=== PATIENT | male | born 1950 | race Caucasian/White ===

== ENCOUNTER → 2016-08-16 | Outpatient (CLI) | payer BC ==
[2016-08-16 12:29] LABS: CHLORIDE,CL 102 mmol/L (98-110); SODIUM,NA 137 mmol/L (136-146)
== END ==
LOC: MW.CHFP 11:30
PROVIDERS: ATTEND Student in an Organized Health Care Education/Training Program
DX: I10 Essential (primary) hypertension (principal); E11.65 Type 2 diabetes mellitus with hyperglycemia; E78.00 Pure hypercholesterolemia, unspecified
CPT/HCPCS: 36415; 80053; 80061; 82044; 83036

== ENCOUNTER 2020-07-22 17:55 | Emergency (ER) | payer BC ==
[2020-07-22] MEDS ORDERED: Diphtheria,Pertussis(Acell),Tetanus Vaccine 0.5 ML Syringe IM ONE (19:33)
[2020-07-22] MEDS ORDERED: Cephalexin 250 MG Cap PO STA (19:33)
[2020-07-22] MEDS ORDERED: Ketorolac 15 MG/ML SDV IM ONE (19:33)
--- NOTE | 2020-07-22 19:38 | EDM.PDOC ---
ED HPI GENERAL MEDICAL PROBLEM - General Chief Complaint: Skin Complaint Stated Complaint: LT HAND HAS STAPLE IN IT Time Seen by Provider: 07/22/20 18:59 - History of Present Illness INITIAL COMMENTS - FREE TEXT/NARRATIVE: CHIEF COMPLAINT(S): Stable and hand HISTORY OF PRESENT ILLNESS: This is a 69-year-old man with a past medical history of hypertension and diabetes mellitus who comes to the emergency department with a chief complaint of staple in hand. The patient states that prior to arrival he was preparing for a garage sale. He states that he was going to sell a stapler and he used it to see if it worked. He accidentally stapled his left hand. He states that he is having some pain at the site but denies any decreased range of motion, numbness, tingling or excessive bleeding. He states that his tetanus is not up-to-date. He rates his pain as 4-5 out of 10 without any radiation. He states that he has not yet taken any pain medications. Keeping it still seems to help the pain and any movement seems to worsen the pain. He denies any other symptoms REVIEW OF SYSTEMS: Constitutional: Denies fever, chills. Skin: Positive for puncture wounds to left palm with stable and left palm MSK: Positive for left hand pain Neurological: Denies, numbness, tingling, weakness PAST MEDICAL HISTORY: As per history of present illness and as reviewed below otherwise noncontributory. SURGICAL HISTORY: As per history of present illness and as reviewed below otherwise noncontributory. SOCIAL HISTORY: As per history of present illness and as reviewed below otherwise noncontributory. FAMILY HISTORY: As per history of present illness and as reviewed below otherwise noncontributory. EXAMINATION OF ORGAN SYSTEMS/BODY AREAS: Constitutional: Blood pressure is 144/88, heart rate 81, respiratory rate 18 wit h an oxygen saturation 96% on room air. Temperature 36.4 General: Overall well-appearing man who is in no acute distress. Psychiatric: Appropriate mood and affect. Eyes: No scleral icterus or conjunctival erythema Cardiovascular: Regular, rate, and rhythm. No gallops, murmurs, or rubs. Bilateral upper extremity pulses symmetric and intact. Respiratory: Lungs clear to auscultation bilaterally. No wheezes, rales, or rhonchi. Musculoskeletal: The patient has full range of motion of all his digits on his left hand. No deformity noted. Skin: There is a staple in the center of the patient's left palm without any active bleeding. Neurological: Alert, GCS 15 strength and sensation grossly intact in upper and lower extremities bilaterally. MEDICAL DECISION MAKING AND COURSE IN THE ED WITH INTERPRETATION/REVIEW OF DIAGNOSTIC STUDIES: This is a 69-year-old male with a past medical history of diabetes mellitus and hypertension who comes to the emergency department with staple to left palm without any active bleeding who is neurovascularly intact. At this time given that the patient's tetanus is not up-to-date we will update the patient's tetanus. We will provide the patient with Toradol for pain relief. The patient is right-hand dominant however given the location of the staple we will start the patient on Keflex for prophylaxis. Foreign body removal Using pliers the staple was removed without any incident. No complications noted. Patient post removal remain neurovascularly intact. I did discuss with patient that he be stable for discharge. I discussed the issues Tylenol, Motrin, ice and elevation. He is to return for any new or worsening symptoms. He is to follow-up with his primary care physician DISPOSITION: The patient was discharged home in stable condition. The patient will follow up with primary care physician within 1 week CONDITION: Fair PROCEDURES: Left hand foreign body removal FINAL IMPRESSION(S)/DIAGNOSES: 1. Acute foreign body to left hand status post foreign body removal Brice Singh M.D. left palm Pain Score (Numeric/FACES): 10 - Related Data Allergies Allergy/AdvReac Type Severity Reaction Status Date / Time No Known Allergies Allergy Verified 07/22/20 19:11 Home Meds: Home Meds Aspirin 81 mg PO DAILY 07/22/20 [History] Lisinopril/Hydrochlorothiazide [Lisinopril-Hctz 10-12.5 mg Tab] 1 each PO DAILY 07/22/20 [History] Simvastatin 40 mg PO DAILY 07/22/20 [History] cephALEXin [Keflex] 250 mg PO BID #10 cap 07/22/20 [Rx] metFORMIN [Glucophage] 500 mg PO BIDMEALS 07/22/20 [History] Past Medical History HEENT History: Reports: None Cardiovascular History: Reports: High Cholesterol, Hypertension Respiratory History: Reports: None Gastrointestinal History: Reports: None Genitourinary History: Reports: None Musculoskeletal History: Reports: None Neurological History: Reports: None Psychiatric History: Reports: None Endocrine/Metabolic History: Reports: Diabetes, Type II Insulin Pump Model and Protection Agent: None Hematologic History: Reports: None Immunologic History: Reports: None Oncologic (Cancer) History: Reports: None Dermatologic History: Reports: None - Infectious Disease History Infectious Disease History: Reports: None - Past Surgical History Head Surgeries/Procedures: Reports: None Social & Family History - Caffeine Use Caffeine Use: Reports: Coffee - Recreational Drug Use Recreational Drug Use: No ED ROS GENERAL - Review of Systems Review Of Systems: See Below ED EXAM, SKIN/RASH Exam: See Below Course - Vital Signs Last Recorded V/S: Last Vital Signs Temp 36.4 C 07/22/20 19:13 Pulse 81 07/22/20 19:13 Resp 18 07/22/20 19:13 BP 144/88 H 07/22/20 19:13 Pulse Ox 96 07/22/20 19:13 - Orders/Labs/Meds Orders: Active Orders 24 hr Category Date Time Status Vaccines to be Administered [RC] PER UNIT ROUTINE Care 07/22/20 19:33 Active Meds: Medications Discontinued Medications Generic Name Dose Route Start Last Admin Trade Name Freq PRN Reason Stop Dose Admin Cephalexin 250 mg 07/22/20 19:33 07/22/20 19:45 Cephalexin 250 Mg Cap PO 07/22/20 19:34 250 mg ONETIME STA Administration Diphtheria/Tetanus/Acell Pertussis 0.5 ml 07/22/20 19:33 07/22/20 19:44 Diphtheria,Pertussis(Acell),Tetanus Vaccine 0.5 Ml Syringe IM 07/22/20 19:34 0.5 ml .ONCE ONE Administration Ketorolac Tromethamine 15 mg 07/22/20 19:33 07/22/20 19:43 Ketorolac 15 Mg/Ml Sdv IM 07/22/20 19:34 15 mg ONETIME ONE Administration Departure - Departure Time of Disposition: 19:37 Disposition: Home, Self-Care 01 Condition: Good Clinical Impression: Foreign body (FB) in soft tissue - Discharge Information *PRESCRIPTION DRUG MONITORING PROGRAM REVIEWED*: No *COPY OF PRESCRIPTION DRUG MONITORING REPORT IN PATIENT HARSHAD: No Prescriptions: cephALEXin [Keflex] 250 mg PO BID #10 cap Instructions: Hand or Foot Foreign Body, Adult Referrals: PCP,None [Primary Care Provider] - Forms: ED Department Discharge Additional Instructions: You evaluate today on an emergent basis. At this time we did remove the staple from your hand. It was cleaned. I do recommend that she use Tylenol and Motrin for pain relief for the next 48 hours scheduled and then as needed after that. You may ice your hand 20 minutes 4 times a day and keep it elevated. I did provide you with a tetanus booster and an antibiotic called Keflex. I would like you to take Keflex twice a day for the next 5 days to prevent infection in your hand. If you have any new or worsening symptoms such as redness, swelling, pus drainage please return to the emergency department. Please follow-up with your primary care physician within 1 week for further evaluation. Please use: Tylenol 500-1000mg every 6 hours (DO NOT TAKE MORE THAN 4000mg in 1 day) Ibuprofen 400mg every 6 hours (Take with food as it can cause ulcers, GI upset) Example schedule: 8:00 AM (Tylenol 500-1000mg) 11:00 AM (Ibuprofen 400mg) 2:00 PM (Tylenol 500-1000mg) 5:00 PM (Ibuprofen 400mg) Ice the area 20 minutes 4 times per day [facility] [address] [place] [address] [place] [address] The patient is informed of any results of their evaluation and diagnostic workup and all questions are answered. They are given discharge instructions and return precautions. The patient is stable for discharge. The patient states they understand and agree with the plan and that they will return if their symptoms get worse or if they have any new concerns. The following information is given to patients seen in the emergency department who are being discharged to home. This information is to outline your options for follow-up care. We provide all patients seen in our emergency department with a follow-up referral. The need for follow-up, as well as the timing and circumstances, are variable depending upon the specifics of your emergency department visit. If you don't have a primary care physician on staff, we will provide you with a referral. We always advise you to contact your personal physician following an emergency department visit to inform them of the circumstance of the visit and for follow-up with them and/or the need for any referrals to a consulting specialist. The emergency department will also refer you to a specialist when appropriate. This referral assures that you have the opportunity for follow-up care with a specialist. All of these measure are taken in an effort to provide you with optimal care, which includes your follow-up. Under all circumstances we always encourage you to contact your private physician who remains a resource for coordinating your care. When calling for follow-up care, please make the office aware that this follow-up is from your recent emergency room visit. If for any reason you are refused follow-up, please contact the [facility] Emergency Department at and asked to speak to the emergency department charge nurse. Sepsis Event Note (ED) - Evaluation Sepsis Screening Result: No Definite Risk - Focused Exam Vital Signs: Vital Signs Temp Pulse Resp BP Pulse Ox 07/22/20 19:13 36.4 C 81 18 144/88 H 96 - My Orders Last 24 Hours: My Active Orders 07/22/20 19:33 Vaccines to be Administered [RC] PER UNIT ROUTINE - Assessment/Plan Last 24 Hours: My Active Orders 07/22/20 19:33 Vaccines to be Administered [RC] PER UNIT ROUTINE
== END 2020-07-22 20:00 | disposition home or self-care (01) ==
LOC: MW.ED 17:55
DX: S60.552A Superficial foreign body of left hand, initial encounter (principal); E11.9 Type 2 diabetes mellitus without complications; I10 Essential (primary) hypertension; E78.00 Pure hypercholesterolemia, unspecified; Z79.82 Long term (current) use of aspirin; Z79.84 Long term (current) use of oral hypoglycemic drugs; Z79.899 Other long term (current) drug therapy; Z23 Encounter for immunization; W45.8XXA Other foreign body or object entering through skin, initial encounter
CPT/HCPCS: 90471; 90715; 96372; 99283; A9270; J1885; 10120; 99282